=== PATIENT | female | born 1990 | race Caucasian/White ===

== ENCOUNTER 2019-03-21 10:41 | Inpatient (IN) | payer BC, OTHER ==
[~2019-03-21] VITALS: Ht 167.6 cm; Wt 96.0 kg
[~2019-03-21 10:41] MED LIST: PRENATAL 19 TA1 EAC1 PO
--- NOTE | 2019-03-22 07:07 | PR ---
[facility] [address] [facility] [place], [place] [address] Signed Progress Notes IP Datetime Report Generated by CPN: 03/22/2019 07:06 PROGRESS NOTES: [id number] Impression: Reassuring heart rate; Slow Progression of Labor Procedures: Sterile Vag Exam Plan: Augmentation Informed Consent Obtain: Vaginal Delivery; Risks, Benefits and Alternatives Discussed VITAL SIGNS: [id number] Vital Signs: Reviewed; Within Normal Limits VS Notable Details: mild HTN EXAM: [id number] Dilatation: 5.5 Effacement: 90 Station: -2 Uterine Contractions: q 4 to 6 min MEMBRANES: [id number] Membrane Status: Intact Comments: Comfortable after epidural but contractions have decreased significantly. Will begin low dose pitocin. Fetus A: [id number] FHR Baseline: 145 Variability: Moderate 6-25bpm Accelerations: 15X15 Decelerations: None FHR Category: Category I Presentation: Vertex Comments on Fetus A: No evidence of metabolic acidosis Fetus B: [id number] Signing Physician: Vida Coates MD Copies: ~ *Electronically Signed* 03/22/19 0706 VIDA COATES MD PATIENT NAME: WESTON HINTON PROGRESS NOTE DATE OF : 86 PHYSICIAN: VIDA COATES MD RPT #: [id number] REPORT IS CONFIDENTIAL AND NOT TO BE RELEASED WITHOUT AUTHORIZATION
--- NOTE | 2019-03-22 11:56 | PR ---
[facility] [address] [facility] [place], [place] [address] Signed Progress Notes IP Datetime Report Generated by CPN: 03/22/2019 11:55 PROGRESS NOTES: [id number] Impression: Slow Progression of Labor Procedures: Intrauterine Pressure Catheter; Scalp Electrode; Sterile Vag Exam Plan: Continue present management Informed Consent Obtain: Vaginal Delivery; Risks, Benefits and Alternatives Discussed VITAL SIGNS: [id number] Vital Signs: Reviewed; Within Normal Limits VS Notable Details: mild HTN EXAM: [id number] Dilatation: 8.0 Effacement: 90 Station: -2 Uterine Contractions: q 1 to 5 min MEMBRANES: [id number] Membrane Status: Intact Comments: Very slow progress. Poor labor pattern despite pit. Will increase pit as allowed with an internal monitor. Fetus A: [id number] FHR Baseline: 145 Variability: Moderate 6-25bpm Accelerations: 15X15 Decelerations: None FHR Category: Category I Presentation: Vertex Comments on Fetus A: No evidence of metabolic acidosis Fetus B: [id number] Signing Physician: Vida Coates MD Copies: ~ *Electronically Signed* 03/22/19 1155 VIDA COATES MD PATIENT NAME: WESTON HINTON PROGRESS NOTE DATE OF : 86 PHYSICIAN: VIDA COATES MD RPT #: [id number] REPORT IS CONFIDENTIAL AND NOT TO BE RELEASED WITHOUT AUTHORIZATION
--- NOTE | 2019-03-22 14:04 | PR ---
[facility] [address] [facility] [place], [place] [address] Signed Progress Notes IP Datetime Report Generated by CPN: 03/22/2019 14:04 PROGRESS NOTES: [id number] Impression: Slow Progression of Labor Procedures: Sterile Vag Exam Plan: Continue present management Informed Consent Obtain: Vaginal Delivery; Risks, Benefits and Alternatives Discussed VITAL SIGNS: [id number] Vital Signs: Reviewed; Within Normal Limits VS Notable Details: mild HTN EXAM: [id number] Dilatation: 9.0 Effacement: 90 Station: -2 Uterine Contractions: q 2.5 to 3 min MEMBRANES: [id number] Membrane Status: Intact Comments: Very slow progress despite adequate contractions. Will continue pit augment and position changes. Fetus A: [id number] FHR Baseline: 145 Variability: Moderate 6-25bpm Accelerations: 15X15 Decelerations: Variable FHR Category: Category II Presentation: Vertex Comments on Fetus A: overall reassuring but will continue close observation Fetus B: [id number] Signing Physician: Vida Coates MD Copies: ~ *Electronically Signed* 03/22/19 1404 VIDA COATES MD PATIENT NAME: WESTON HINTON PROGRESS NOTE DATE OF : 86 PHYSICIAN: VIDA COATES MD RPT #: [id number] REPORT IS CONFIDENTIAL AND NOT TO BE RELEASED WITHOUT AUTHORIZATION
--- NOTE | 2019-03-22 15:22 | PR ---
[facility] [address] [place], [place] [address] Signed Progress Notes IP Datetime Report Generated by CPN: 03/22/2019 15:22 PROGRESS NOTES: [id number] Impression: Slow Progression of Labor Procedures: Sterile Vag Exam Plan: Continue present management Informed Consent Obtain: Vaginal Delivery; Risks, Benefits and Alternatives Discussed VITAL SIGNS: [id number] Vital Signs: Reviewed; Within Normal Limits VS Notable Details: mild HTN EXAM: [id number] Dilatation: 9.0 Effacement: 85 Station: -2 Uterine Contractions: q 2 to 3 min MEMBRANES: [id number] Membrane Status: Intact Comments: Extremely slow progress--essentially 2 cm since 0800. Her contraction pattern has been adequate overall. I do not feel the baby is posterior. FHTs have been reassuring. If there has been no further change management administrator the next hr, I feel C/S may be needed for delivery. Fetus A: [id number] FHR Baseline: 140 Variability: Moderate 6-25bpm Accelerations: 15X15 Decelerations: Variable FHR Category: Category II Presentation: Vertex Comments on Fetus A: overall reassuring Fetus B: [id number] Signing Physician: Vida Coates MD Copies: ~ *Electronically Signed* 03/22/19 1522 VIDA COATES MD PATIENT NAME: WESTON HINTON PROGRESS NOTE DATE OF : 86 PHYSICIAN: VIDA COATES MD RPT #: [id number] REPORT IS CONFIDENTIAL AND NOT TO BE RELEASED WITHOUT AUTHORIZATION
--- NOTE | 2019-03-22 15:23 | PR ---
[facility] [address] [place], [place] [address] Signed Progress Notes IP Datetime Report Generated by CPN: 03/22/2019 15:23 PROGRESS NOTES: [id number] Impression: Slow Progression of Labor Procedures: Sterile Vag Exam Plan: Continue present management Informed Consent Obtain: Vaginal Delivery; Risks, Benefits and Alternatives Discussed VITAL SIGNS: [id number] Vital Signs: Reviewed; Within Normal Limits VS Notable Details: mild HTN EXAM: [id number] Dilatation: 9.0 Effacement: 85 Station: -2 Uterine Contractions: q 2 to 3 min MEMBRANES: [id number] Membrane Status: Intact Comments: Extremely slow progress--essentially 2 cm since 0800. Her contraction pattern has been adequate overall. I do not feel the baby is posterior. FHTs have been reassuring. If there has been no further twisting frame changer the next hr, I feel C/S may be needed for delivery. Fetus A: [id number] FHR Baseline: 140 Variability: Moderate 6-25bpm Accelerations: 15X15 Decelerations: Variable FHR Category: Category II Presentation: Vertex Comments on Fetus A: overall reassuring Fetus B: [id number] Signing Physician: Vida Coates MD Copies: ~ *Electronically Signed* 03/22/19 1523 VIDA COATES MD PATIENT NAME: WESTON HINTON PROGRESS NOTE DATE OF : 86 PHYSICIAN: VIDA COATES MD RPT #: [id number] REPORT IS CONFIDENTIAL AND NOT TO BE RELEASED WITHOUT AUTHORIZATION
--- NOTE | 2019-03-23 07:59 | PR ---
[facility] [address] [facility] [place], [place] [address] Signed PP Progress Notes Datetime Report Generated by CPN: 03/23/2019 07:59 SUBJECTIVE: [id number] Pain: Within normal limits Vital Signs: [id number] Vital Signs: Reviewed; Within Normal Limits EXAM: [id number] Cardiovascular: Not Done Respiratory: Not Done Abdomen/Uterus: Abnormal Lochia: Normal Vulva/Perineum: Not Done Breasts: Not Done CVA Tenderness: Not Done Extremities: Normal Incision: Not Applicable Progress: Normal Exam Comments: Fundus firm, NT @ U-1. H/H 11.2/32.7, WBC 16, plat 145k IMPRESSION/PLAN/PROCEDURES: [id number] Impression: Normal progression Plan: Discharge Procedures: None Progress Notes: Doing well. She desires D/C tonight. She will be staying with her parents. Signing Physician: Vida Coates MD Copies: ~ *Electronically Signed* 03/23/19 0759 VIDA COATES MD PATIENT NAME: WESTON HINTON PROGRESS NOTE DATE OF : 86 PHYSICIAN: VIDA COATES MD RPT #: [id number] REPORT IS CONFIDENTIAL AND NOT TO BE RELEASED WITHOUT AUTHORIZATION
== END 2019-03-23 18:40 | disposition home or self-care (01) | DRG 806 ==
LOC: FBC 03-22 03:51
PROVIDERS: ADMIT Obstetrics & Gynecology
PROC: 10E0XZZ Delivery of Products of Conception, External Approach (ICD-10-PCS; principal; 2019-03-22)
PROC: 0KQM0ZZ Repair Perineum Muscle, Open Approach (ICD-10-PCS; 2019-03-22)
PROC: 10H07YZ Insertion of Other Device into Products of Conception, Via Natural or Artificial Opening (ICD-10-PCS; 2019-03-22)
PROC: 10907ZC Drainage of Amniotic Fluid, Therapeutic from Products of Conception, Via Natural or Artificial Opening (ICD-10-PCS; 2019-03-22)
PROC: 00HU33Z Insertion of Infusion Device into Spinal Canal, Percutaneous Approach (ICD-10-PCS; 2019-03-22)
PROC: 3E0R3BZ Introduction of Anesthetic Agent into Spinal Canal, Percutaneous Approach (ICD-10-PCS; 2019-03-22)
DX: O70.1 Second degree perineal laceration during delivery (principal); O72.1 Other immediate postpartum hemorrhage; Z37.0 Single live birth; Z3A.40 40 weeks gestation of pregnancy; O99.334 Smoking (tobacco) complicating childbirth; F17.210 Nicotine dependence, cigarettes, uncomplicated; O76 Abnormality in fetal heart rate and rhythm complicating labor and delivery; O99.214 Obesity complicating childbirth; E66.9 Obesity, unspecified; O99.52 Diseases of the respiratory system complicating childbirth; J45.990 Exercise induced bronchospasm; Z79.899 Other long term (current) drug therapy
CPT/HCPCS: 01960; 36415; 85027; A9270; J2590; J2795; J7121